=== PATIENT | female | born 1965 | race African-American/Black ===

== ENCOUNTER 2019-12-09 07:15 | Day surgery (SDC) | payer OTHER ==
[~2019-12-09 07:15] MED LIST: CEFAZOLIN SODIUM 2 GM in DEXTROSE 5%-WATER 100 ML IV PRN; VANCOMYCIN HCL 1,000 MG in DEXTROSE 5%-WATER 250 ML IV PRN
[2019-12-09] MEDS ORDERED: LIDOCAINE 1% INJ-PF (10 MG/ML) 30 ML SDV ONE (08:49)
[2019-12-09] MEDS ORDERED: BUPIVACAINE HCL 0.5 % INJ/PF 30 ML SDV ONE (08:49)
[2019-12-09 08:59] LABS: HEMATOCRIT 32.1 % (36.0-47.0); HEMOGLOBIN 10.4 g/dL (12.0-15.5); MEAN CORPUSCULAR HEMOGLOBIN 23.4 pg (27.0-33.4); MEAN CORPUSCULAR HGB CONC 32.4 g/dL (32.0-36.0); MEAN CORPUSCULAR VOLUME 72 fl (80-97); PLATELET COUNT 257 10^3/uL (150-450); RED BLOOD COUNT 4.43 10^6/uL (3.72-5.28); RED CELL DISTRIBUTION WIDTH 14.6 % (11.5-14.0); WHITE BLOOD COUNT 7.6 10^3/uL (4.0-10.5)
[2019-12-09] MEDS ORDERED: FENTANYL CITRATE INJ/PF 100 MCG/2 ML AMPUL ONE (09:12)
[2019-12-09] MEDS ORDERED: KETOROLAC TROMETHAMINE 60 MG/2 ML SDV ONE (09:12)
[2019-12-09] MEDS ORDERED: LIDOCAINE 2% INJ-PF (20 MG/ML) 10 ML AMPUL ONE (09:12)
[2019-12-09] MEDS ORDERED: MIDAZOLAM 2 MG/2 ML INJ ONE (09:12)
[2019-12-09] MEDS ORDERED: PROPOFOL INJ 200 MG/20 ML VIAL IV ONE (09:13)
[2019-12-09] MEDS ORDERED: DEXAMETHASONE SOD PHOSPHATE INJ 4 MG/1 ML VIAL ONE (09:13)
[2019-12-09] MEDS ORDERED: ONDANSETRON HCL INJ/PF 4 MG/2 ML SDV ONE (09:13)
[2019-12-09 09:18] LABS: ANION GAP 7 (5-19); BLOOD UREA NITROGEN 14 mg/dL (7-20); CALCIUM 9.4 mg/dL (8.4-10.2); CARBON DIOXIDE 30 mmol/L (22-30); CHLORIDE 103 mmol/L (98-107); GLUCOSE 92 mg/dL (75-110); POTASSIUM 4.1 mmol/L (3.6-5.0)
[2019-12-09] MEDS ORDERED: FENTANYL CITRATE INJ/PF 250 MCG/5 ML AMPULE ONE (09:55)
[2019-12-09] MEDS ORDERED: PHENYLEPHRINE HCL INJ/PF 10 MG/1 ML SDV ONE (11:16)
--- NOTE | 2019-12-09 11:23 | Operative Report ---
Operative Report DATE OF SURGERY: 12/09/19 PREOPERATIVE DIAGNOSIS: 1. Right wrist de Quervain's tendinitis. 2. Right po ssible extensor pollicis longus tendon rupture POSTOPERATIVE DIAGNOSIS: 1. Right wrist de Quervain's tendinitis. 2. Right extensor pollicis longus tendon rupture OPERATION: 1. Right extensor indicis proprius to extensor pollicis longus tendon transfer. 2. Right de Quervain's release SURGEON: CHASE PAN ANESTHESIA: GA COMPLICATIONS: None ESTIMATED BLOOD LOSS: Minimal INTRAOPERATIVE FINDINGS: Right extensor pollicis longus tendon rupture PROCEDURE: Indications for procedure: The patient is a 58-year-old woman who presented with pain and swelling over the first dorsal extensor compartment of her right wrist. In addition she had difficulty fully extending her thumb against resistance. We had discussed that her symptoms were consistent with de Quervain's tendinitis but also concerning for possible extensor pollicis longus tendon rupture. Description of procedure: Following the induction of a general anesthetic and administration of 2 g of Ancef, the patient was positioned supine on the operating room table. All bony prominences were padded. The right upper extremity was sterilely prepped and draped in the usual fashion. The arm was exsanguinated and the tourniquet inflated to 250 mmHg. A transverse incision was made on the dorsal aspect of the wrist. This incision was made 1 cm proximal to the radial styloid. It extended from the radial aspect of the wrist from the 1st-3rd extensor compartments. The tendons of the first dorsal extensor compartment were completely released. The third extensor compartment was then opened. At this point it was found that the extensor pollicis longus tendon had ruptured and retracted. It was therefore decided to perform an extensor indices proprius to extensor pollicis longus tendon transfer. The extensor indices proprius was harvested at the level of the metacarpal phalangeal joint of the index finger. The tendon was then pulled into the proximal wound and packed in moistened gauze at the level of the wrist. An incision was made over the metacarpal phalangeal joint of the thumb. A clamp was used to spread the soft tissues from the thumb to the level of the wrist. The extensor indices proprius was grasped and pulled to the level of the MP joint of the thumb. A Pulvertaft weave was used to secure the extensor indices proprius to the extensor pollicis longus at the level of the MP joint. The extensor indices proprius was passed through the extensor pollicis longus 4 separate times and sutured into place using 4 oh fiber loop suture. The tension of the EIP was set to maintain the thumb in extension with the wrist flexed while also allowing the thumb to touch the small finger with the wrist extended. The wounds were then all copiously irrigated and closed with 3-0 Monocryl suture using a subcuticular technique. Sterile glue and Steri-Strips were used to complete the repair. A bulky sterile dressing and splint were applied. The patient tolerated procedure well without complications was brought recovery in stable condition.
[2019-12-09] MEDS: FENTANYL CITRATE INJ/PF 100 MCG/2 ML AMPUL ONE ×2 (11:35→11:43)
[2019-12-09] MEDS ORDERED: PROMETHAZINE HCL INJ 25 MG/1 ML VIAL IV PRN ×2 (11:44)
[2019-12-09] MEDS ORDERED: MORPHINE SULFATE 10 MG/ML INJ IV PRN (11:44)
[2019-12-09] MEDS ORDERED: DIPHENHYDRAMINE HCL 50 MG/ML VIAL IV PRN (11:44)
[2019-12-09] MEDS ORDERED: OXYCODONE-ACETAMINOPHEN 5-325 MG TABLET PO PRN ×3 (11:44→11:57)
[2019-12-09] MEDS ORDERED: FENTANYL CITRATE INJ/PF 100 MCG/2 ML AMPUL IV PRN ×3 (11:44)
[2019-12-09] MEDS ORDERED: MEPERIDINE HCL/PF INJ 25 MG/1 ML DISP.SYRIN IV PRN (11:44)
[2019-12-09] MEDS ORDERED: KETOROLAC TROMETHAMINE INJ/PF 30 MG/1 ML SDV ONE (11:52)
[2019-12-09] MEDS ORDERED: ACETAMINOPHEN 1,000 MG/100 ML RTUPB IV ONE ×2 (11:53→12:15)
[2019-12-09] MEDS ORDERED: ONDANSETRON HCL INJ/PF 4 MG/2 ML SDV IV PRN (11:58)
[2019-12-09] MEDS ORDERED: HYDROMORPHONE HCL INJ/PF 2 MG/ML AMPULE ONE (12:13)
[2019-12-09] MEDS ORDERED: KETOROLAC TROMETHAMINE INJ/PF 30 MG/1 ML SDV IV ONE (12:15)
[2019-12-09] MEDS ORDERED: HYDROMORPHONE HCL INJ/PF 2 MG/ML AMPULE IV ONE (12:45)
[2019-12-09 15:08] VITALS: BP 120/72
== END 2019-12-09 15:00 | disposition home or self-care (01) ==
LOC: OROUT 07:15
PROVIDERS: ATTEND Orthopaedic Surgery
DX: M65.4 Radial styloid tenosynovitis [de Quervain] (principal); M66.231 Spontaneous rupture of extensor tendons, right forearm; E66.9 Obesity, unspecified
CPT/HCPCS: 36415; 85027; 80048; 01810; 25000; 25310; J2250; J3490 ×2; J0690; J1100; J1885 ×2; J3010 ×2; J1170; J2370; J2405; J7060; J2704; J0131; 1810; J3370